=== PATIENT | male | born 2000 | race Caucasian/White ===

== ENCOUNTER 2022-08-13 16:53 | Emergency (ER) | payer MEDICAID, OTHER ==
[2022-08-13 17:13] VITALS: BP 132/82
--- NOTE | 2022-08-13 18:18 | ED Physician Documentation ---
PD HPI OPHTHO - Stated complaint Stated Complaint: OBJECT IN RT EYE/INJ - Chief complaint Chief Complaint: Heent - History obtained from History obtained from: Patient - Additional information Additional information: The patient comes to the emergency department chief complaint of "I feel like there is metal in my eye". He states that about 1 week ago, he was sanding some metal when he felt as though a piece of metal came into his eye. The patient states that he was wearing protective eyewear, but that the pieces either caught in his hair and fell into his eye or came up over the glasses. The patient states that he was able to get a piece out on his own, but for the last several days since, he has had a sense that there is still something in his eye. He has had some redness and tearing because of this. The patient states that he has not had any further contact with metal or any other particulate matter since, and the only time he could have gotten the metal in his eye was about a week ago. He states this is happened to him many times before and that he usually just gets the metal out on his own. He has never gone to see a physician for this before. The patient denies any visual changes. No other complaints at this time. Review of Systems Ten Systems: 10 systems reviewed and negative Constitutional: reports: Reviewed and negative Eyes: reports: Irritation, Other (Redness) Ears: reports: Reviewed and negative Nose: reports: Reviewed and negative Throat: reports: Reviewed and negative Cardiac: reports: Reviewed and negative Respiratory: reports: Reviewed and negative GI: reports: Reviewed and negative : reports: Reviewed and negative Skin: reports: Reviewed and negative Musculoskeletal: reports: Reviewed and negative Neurologic: reports: Reviewed and negative Psychiatric: reports: Reviewed and negative Endocrine: reports: Reviewed and negative Immunocompromised: reports: Reviewed and negative PD PAST MEDICAL HISTORY - Past Medical History Past Medical History: Yes - Past Surgical History Past Surgical History: Yes - Present Medications Home Medications: Ambulatory Orders Medication Instructions Recorded Confirmed Polymyxin B Sulf/Trimethoprim 1 drops RIGHTEYE Q3H 7 Days #10 ml 08/13/22 [Polytrim Eye Drops] - Allergies Allergies/Adverse Reactions: Allergies Allergy/AdvReac Type Severity Reaction Status Date / Time No Known Drug Allergies Allergy Verified 08/13/22 17:13 - Social History Does the pt smoke?: No Smoking Status: Never smoker Does the pt drink ETOH?: Yes - Immunizations Immunizations are current?: Yes - POLST Patient has POLST: No PD ED PE NORMAL - Vitals Vital signs reviewed: Yes - General General: Alert and oriented X 3, No acute distress, Well developed/nourished - HEENT HEENT: Atraumatic, PERRL, EOMI, Moist mucous membranes, Other (Moderate conjunctival injection right eye. Fluorescein exam negative. With magnification, a tiny, dark foreign body is noted to be embedded at about the 4 o'clock position of the cornea. No other foreign bodies noted. Lids everted for exam.) - Respiratory Respiratory: No respiratory distress - Derm Derm: Normal color, Warm and dry, No rash - Extremities Extremities: No deformity - Neuro Neuro: Alert and oriented X 3, continuous improvement facilitator 2-12 intact, Normal speech - Psych Psych: Normal mood, Normal affect Results - Vitals Vitals: Oxygen O2 Source Room air Procedures - FB removal FB location: Other (I) FB removal preparation: Local anesthesia-specify (Proparacaine) Removal method: Irrigated/flushed, Other (Under visualization directly with slit-lamp, a needle was used to hook the edge of the foreign body to flick it out of the eye.) FB removal aftercare: No complications, Patient tolerated well, Unable to remove (The tiny piece of metal was very firmly embedded in the cornea and despite multiple attempts, could not be budged.) PD MEDICAL DECISION MAKING - ED course Complexity details: considered differential, d/w patient, d/w family ED course: I did make multiple attempts to remove the foreign body from the patient's eye, but considering the extended amount of time it had been since the metal entered the cornea, as well as the lack of fluorescein uptake, I suspected that there was likely epithelialization, which greatly increased the difficulty in removing the foreign body. I discussed with the patient that he will need to follow-up with ophthalmology if he wishes to have this removed from his eye. I would recommend follow-up as soon as possible to prevent any further complications. The patient states that he will do this. We have discussed the usual indications for return, and I have placed him on antibiotic drops. Departure - Departure Disposition: 01 Home, Self Care Clinical Impression: Foreign body in eye Qualifiers: Encounter type: initial encounter Laterality: right Qualified Code(s): T15.91XA - Foreign body on external eye, part unspecified, right eye, initial encounter Condition: Stable Instructions: ED Foreign Body Cornea Prescriptions: Polymyxin B Sulf/Trimethoprim [Polytrim Eye Drops] 1 drops RIGHTEYE Q3H 7 Days #10 ml Comments: You do have a very small metallic foreign body in your cornea; however, it is quite embedded and has been there for a number of days now, and not been able to remove it with our equipment. It is important that you follow-up with ophthalmology soon as possible to address this. You should call first thing tomorrow morning, and you should also crab picker your antibiotic drops at [facility] in [place] this evening. You should start taking them tonight. You may take ibuprofen as needed for discomfort. If you begin to have heavy disch arge from your eye, then you should have it rechecked immediately. If you do return here, that this time is in the morning during the week so we can consult ophthalmology directly during business hours when they are around. Discharge Date/Time: 08/13/22 18:37
== END 2022-08-13 18:37 | disposition home or self-care (01) ==
LOC: ED 16:53
DX: T15.01XA Foreign body in cornea, right eye, initial encounter (principal); X58.XXXA Exposure to other specified factors, initial encounter
CPT/HCPCS: 1040M; 65222; 99282; 99284

== ENCOUNTER 2022-08-28 20:12 | Emergency (ER) | payer MEDICAID, OTHER ==
[2022-08-28] MEDS ORDERED: TETANUS/DIPHTHERIA/PERTUSSIS 0.5 ML SYRINGE IM ONE (20:43)
--- NOTE | 2022-08-28 21:04 | ED Physician Documentation ---
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 Note made that he is covered in blood, but most of it is not his own. Review of Systems Constitutional: reports: Reviewed and negative Throat: reports: Reviewed and negative Cardiac: reports: Reviewed and negative Respiratory: reports: Reviewed and negative PD PAST MEDICAL HISTORY - Past Medical History Past Medical History: No - Past Surgical History Past Surgical History: No - Present Medications Home Medications: Ambulatory Orders Medication Instructions Recorded Confirmed Polymyxin B Sulf/Trimethoprim 1 drops RIGHTEYE Q3H 7 Days #10 ml 08/13/22 [Polytrim Eye Drops] - Allergies Allergies/Adverse Reactions: Allergies Allergy/AdvReac Type Severity Reaction Status Date / Time No Known Drug Allergies Allergy Verified 08/28/22 20:16 - Social History Does the pt smoke?: Yes Smoking Status: Current every day smoker Does the pt drink ETOH?: Yes ETOH Use: Beer Does the pt have substance abuse?: No - Immunizations Immunizations are current?: Yes - POLST Patient has POLST: No PD ED PE NORMAL - Vitals Vital signs reviewed: Yes - General General: Alert and oriented X 3, No acute distress - Extremities Extremities: Other (There is a 1.5 cm laceration on the palmar side of the mid phalanx of the left middle finger extending over towards the radial side of the finger. He is not insensate distal to that on the radial side but with decreased sensation there. Flexor tendon strength is intact.) - Neuro Neuro: Alert and oriented X 3, Normal speech Results - Vitals Vitals: Vital Signs - 24 hr 08/28/22 20:16 Temperature 36.5 C Heart Rate 87 Respiratory 16 Rate Blood Pressure 134/72 H O2 Saturation 98 Oxygen O2 Source Room air Procedures - Laceration (location) Left middle finger Length in cm: 1.5 Wound type: Into subcut fat Neurovascular status: Motor intact, Other (There seems to be a partial radial side digital nerve injury) Tendon involvement: Tendon intact Anesthesia: Lidocaine 1% Wound preparation: Chlorhexadine, Irrigated copiously NS Skin layer closure: Nylon, Interrupted, Size #-0 - enter number (4-0), Sutures - enter # (4 sutures) Other: Patient tolerated well, No complications, Neurovascular intact, Tetanus booster given PD MEDICAL DECISION MAKING - ED course ED course: He does have a digital nerve injury, at least partial on the radial side of the affected digit. I offered to call [facility] for urgent but not emergent consultation for clinical follow-up for same which he declined. Departure - Departure Disposition: 01 Home, Self Care Clinical Impression: Digital nerve injury Injury of left middle finger Qualifiers: Encounter type: initial encounter Qualified Code(s): S69.92XA - Unspecified injury of left wrist, hand and finger(s), initial encounter Condition: Good Record reviewed to determine appropriate education?: Yes Instructions: ED Laceration Hand Comments: You are seen today for a laceration of the left middle finger, there is at least a partial nerve injury there. It potentially eventually sending down to [facility] for evaluation of same which you have declined. If you change your mind you can call [facility] hand clinic at [phone]. Come back for any signs of infection which would include: Redness, swelling, drainage, increased pain, or fevers. You can wash it soap and water. Keep it covered and moist with bacitracin ointment which is available over the counter; avoid neosporin. Follow-up with your physician in About 14 days for suture removal.
[2022-08-28 21:19] VITALS: BP 125/77
== END 2022-08-28 21:19 | disposition home or self-care (01) ==
LOC: ED 20:12
DX: S64.493A Injury of digital nerve of left middle finger, initial encounter (principal); S61.213A Laceration without foreign body of left middle finger without damage to nail, initial encounter; W26.0XXA Contact with knife, initial encounter
CPT/HCPCS: 12011; 90471; 99282